=== PATIENT | female | born 1950 | race Caucasian/White ===

== ENCOUNTER 2018-06-27 10:47 | Inpatient (IN) | payer MEDICARE, MEDICAID ==
[~2018-06-27] VITALS: Ht 154.9 cm; Wt 48.6 kg
[2018-06-27] MEDS ORDERED: SODIUM CHLORIDE 0.9% 1,000 ML IV ONE (10:56)
[2018-06-27] MEDS ORDERED: LORazepam 2MG/ML-1ML VIAL IV ONE (11:00)
[2018-06-27 11:27] LABS: Basophils # (auto) 0.1 uL; Basophils % (auto) 0.8 % (0.0-2.0); Eosinophils # (auto) 0 uL; Eosinophils % (auto) 0.3 % (0.0-7.0); Hematocrit 45.3 % (36.0-46.0); Hemoglobin 15.2 g/dL (12.2-16.2); Lymphocytes # (auto) 1.3 uL; Lymphocytes % (auto) 15.7 % (10.0-50.0); Mean Corpuscular Hemoglobin 28.9 pg (28.0-32.0); Mean Corpuscular Hgb Conc. 33.6 g/dL (32.0-36.0); Mean Corpuscular Volume 86.1 fL (80.0-100.0); Monocytes # (auto) 0.5 uL; Monocytes % (auto) 5.7 % (0.0-12.0); Neutrophils # (auto) 6.2 uL; Neutrophils % (auto) 77.5 % (37.0-80.0); Platelet Count (auto) 266 10^3/uL (140-450); Red Blood Cells 5.26 10^6/uL (4.0-5.20); Red Cell Distribution Width 13.7 % (11.8-14.3)
[2018-06-27 11:35] LABS: INR 0.92 (0.9-1.15); Partial Thromboplastin Time 27.7 sec (23.78-33.04); Prothrombin Time 9.9 sec (9.27-12.13)
[2018-06-27 11:49] LABS: Anion Gap 8 (5-15); Blood Urea Nitrogen 11 mg/dL (7-18); Carbon Dioxide 26 mmol/L (21-32); Chloride 99 mmol/L (98-107); GFR African American 125 mL/min; Glucose 122 mg/dL (74-106); Potassium 3.3 mmol/L (3.5-5.1); Sodium 133 mmol/L (136-145)
[2018-06-27 11:50] LABS: Alanine Aminotransferase 21 U/L (13-56); Albumin 3.9 g/dL (3.4-5.0); Alkaline Phosphatase 116 U/L (45-117); Aspartate Aminotransferase 24 U/L (15-37); Bilirubin, Total 0.5 mg/dL (0.2-1.0); Calcium 8.9 mg/dL (8.5-10.1); GFR Non-African American 103 mL/min; Magnesium 2.3 mg/dL (1.6-2.6); Total Protein 8.1 g/dL (6.4-8.2)
[2018-06-27] MEDS ORDERED: SODIUM CHLORIDE 0.9% 1,000 ML IV SCH ×2 (11:52→17:40)
[2018-06-27] MEDS ORDERED: PROMETHAZINE HCL 25 MG/ML 1ML IV PRN (12:00)
[2018-06-27] MEDS ORDERED: ACETAMINOPHEN 500 MG TAB PO PRN (12:00)
[2018-06-27] MEDS ORDERED: DEXTROSE (50%) 50ML SYRG IV PRN (12:00)
[2018-06-27] MEDS ORDERED: NITROGLYCERIN 0.4 MG SL TAB SL PRN (12:00)
[2018-06-27] MEDS ORDERED: MORPHINE SULF INJ 2 MG/ML SYRINGE 1ML IV PRN (12:00)
[2018-06-27] MEDS ORDERED: LACTULOSE 20Gm/30ML SOLN PO PRN (12:00)
[2018-06-27] MEDS ORDERED: NITROGLYCERIN 0.2MG/HR TOPICAL PATCH TD ONE (12:15)
[2018-06-27] MEDS ORDERED: ENOXAPARIN SOD 40 MG/0.4 ML SYRINGE SC ONE (12:15)
[2018-06-27] MEDS ORDERED: ENALAPRIL MALEATE 10 MG TAB PO ONE (12:15)
[2018-06-27] MEDS ORDERED: ASPirin 81 mg TAB PO ONE (12:15)
[2018-06-27] MEDS ORDERED: PANTOPRAZOLE 40 MG TAB PO ONE (12:15)
[2018-06-27 15:03] VITALS: BP 127/87
[2018-06-27] MEDS: InsuLIN REG 1unit/0.01ml Soln (100units/ml) SC SCH ×2 (17:00→22:00)
[2018-06-27] MEDS: ACCU-CHEK COMFORT CURVE STRIP VI SCH ×2 (17:00→22:50)
[2018-06-27 17:44] VITALS: BP 119/73
[2018-06-27] MEDS: SOD CHL 0.9%/ KCL 40MEQ 1,000 ML IV SCH (17:59)
[2018-06-27] MEDS: MORPHINE SULFATE 4 MG/ML SYR/VIAL IV PRN (18:52)
[2018-06-27 21:30] VITALS: BP 105/69
[2018-06-27] MEDS: ATORVASTATIN 20 MG TAB PO SCH (22:45)
[2018-06-27] MEDS: HYDROcodone-ACET 5/325MG TAB PO PRN (22:58)
[2018-06-27] MEDS: TEMAZEPAM 15 MG CAP PO PRN (22:59)
[2018-06-28 05:00] VITALS: BP 111/70
[2018-06-28 05:59] LABS: Cholesterol 129 mg/dL (< 200); HDL Cholesterol 77 mg/dL (40-59); LDL Cholesterol 52 mg/dL (< 100); Triglycerides 84 mg/dL (< 150)
[2018-06-28] MEDS: InsuLIN REG 1unit/0.01ml Soln (100units/ml) SC SCH ×4 (06:25→21:49)
[2018-06-28] MEDS: ACCU-CHEK COMFORT CURVE STRIP VI SCH ×4 (06:25→21:49)
[2018-06-28] MEDS: SOD CHL 0.9%/ KCL 40MEQ 1,000 ML IV SCH ×2 (06:35→13:15)
[2018-06-28] MEDS: HYDROcodone-ACET 5/325MG TAB PO PRN ×2 (06:36→12:37)
[2018-06-28] MEDS: MORPHINE SULFATE 4 MG/ML SYR/VIAL IV PRN ×2 (08:31→14:27)
[2018-06-28 09:00] VITALS: BP 124/81
[2018-06-28] MEDS: LORazepam 0.5 MG TAB PO PRN ×2 (09:13→16:43)
[2018-06-28] MEDS: ENOXAPARIN SOD 40 MG/0.4 ML SYRINGE SC SCH (09:58)
[2018-06-28] MEDS: ASPirin 81 mg TAB PO SCH (09:58)
[2018-06-28] MEDS: NITROGLYCERIN 0.2MG/HR TOPICAL PATCH TD SCH (09:59)
[2018-06-28] MEDS: PANTOPRAZOLE 40 MG TAB PO SCH (10:00)
[2018-06-28] MEDS: ENALAPRIL MALEATE 10 MG TAB PO SCH (10:00)
[2018-06-28 16:57] VITALS: BP 163/58
[2018-06-28 21:30] VITALS: BP 114/80
[2018-06-28] MEDS: ATORVASTATIN 20 MG TAB PO SCH (22:00)
[2018-06-29] MEDS: SOD CHL 0.9%/ KCL 40MEQ 1,000 ML IV SCH ×3 (00:04→22:12)
[2018-06-29 05:00] VITALS: BP 137/93
[2018-06-29] MEDS: ACCU-CHEK COMFORT CURVE STRIP VI SCH ×4 (06:10→22:54)
[2018-06-29] MEDS: InsuLIN REG 1unit/0.01ml Soln (100units/ml) SC SCH ×4 (06:10→22:54)
[2018-06-29 09:30] VITALS: BP 127/61
[2018-06-29] MEDS: ASPirin 81 mg TAB PO SCH (10:02)
[2018-06-29] MEDS: PANTOPRAZOLE 40 MG TAB PO SCH (10:02)
[2018-06-29] MEDS: ENOXAPARIN SOD 40 MG/0.4 ML SYRINGE SC SCH (10:03)
[2018-06-29] MEDS: ENALAPRIL MALEATE 10 MG TAB PO SCH (10:03)
[2018-06-29] MEDS: NITROGLYCERIN 0.2MG/HR TOPICAL PATCH TD SCH (10:04)
[2018-06-29] MEDS: MORPHINE SULFATE 4 MG/ML SYR/VIAL IV PRN ×2 (11:35→18:27)
[2018-06-29] MEDS: LORazepam 0.5 MG TAB PO PRN (11:36)
[2018-06-29 13:15] VITALS: BP 110/70
[2018-06-29] MEDS: HYDROcodone-ACET 5/325MG TAB PO PRN ×2 (15:22→22:12)
[2018-06-29 17:01] VITALS: BP 130/93
[2018-06-29 18:43] LABS: Alcohol, Urine < 3.0 mg/dL (0-5); Amphetamine Screen, Urine NEGATIVE (NEGATIVE); Barbiturate Scree,Urine NEGATIVE (NEGATIVE); Benzodiazephine Screen, Urine NEGATIVE (NEGATIVE); Cannabinoid Screen, Urine NEGATIVE (NEGATIVE); Cocaine Screen, Urine NEGATIVE (NEGATIVE); Opiate Scree,Urine POSITIVE (NEGATIVE); Phencyclidine Screen, Urine NEGATIVE (NEGATIVE)
[2018-06-29 21:34] VITALS: BP 105/74
[2018-06-29] MEDS: ATORVASTATIN 20 MG TAB PO SCH (22:12)
[2018-06-29] MEDS: TEMAZEPAM 15 MG CAP PO PRN (22:55)
[2018-06-30 04:36] VITALS: BP 112/79
[2018-06-30] MEDS: HYDROcodone-ACET 5/325MG TAB PO PRN ×2 (06:43→17:05)
[2018-06-30] MEDS: SOD CHL 0.9%/ KCL 40MEQ 1,000 ML IV SCH ×2 (06:47→15:15)
[2018-06-30] MEDS: InsuLIN REG 1unit/0.01ml Soln (100units/ml) SC SCH ×4 (06:57→22:00)
[2018-06-30] MEDS: ACCU-CHEK COMFORT CURVE STRIP VI SCH ×4 (06:58→22:00)
[2018-06-30 06:59] LABS: Albumin 3.3 g/dL (3.4-5.0); BUN/Creatinine Ratio 24.2; Bilirubin, Total 0.4 mg/dL (0.2-1.0); Calcium 8.2 mg/dL (8.5-10.1); Potassium 4.1 mmol/L (3.5-5.1); Total Protein 6.7 g/dL (6.4-8.2)
[2018-06-30 09:00] VITALS: BP 119/81
[2018-06-30] MEDS ORDERED: VERAPAMIL 2.5MG/ML INJ 2ML VIAL IV ONE (09:18)
[2018-06-30] MEDS ORDERED: SODIUM CHL 0.9% 0 ML ONE (09:18)
[2018-06-30] MEDS ORDERED: MIDAZOLAM HCL 1MG/1ML-2 ML VIAL ONE (09:18)
[2018-06-30] MEDS ORDERED: ANGIOMAX 250 MG VIAL IV ONE (09:18)
[2018-06-30] MEDS ORDERED: fentaNYL CITRATE 100 MCG/2 ML VL ONE (09:18)
[2018-06-30] MEDS ORDERED: HEPARIN SODIUM (PORCINE) 5000 UNITS/ML 1ML VIAL ONE (09:51)
[2018-06-30] MEDS: ENOXAPARIN SOD 40 MG/0.4 ML SYRINGE SC SCH (10:00)
[2018-06-30] MEDS: ENALAPRIL MALEATE 10 MG TAB PO SCH (11:40)
[2018-06-30] MEDS: PANTOPRAZOLE 40 MG TAB PO SCH (11:41)
[2018-06-30] MEDS: NITROGLYCERIN 0.2MG/HR TOPICAL PATCH TD SCH (11:41)
[2018-06-30] MEDS: ASPirin 81 mg TAB PO SCH (11:41)
[2018-06-30 13:00] VITALS: BP 133/74
[2018-06-30 21:28] VITALS: BP 112/70
[2018-06-30] MEDS: ATORVASTATIN 20 MG TAB PO SCH (23:11)
[2018-07-01] MEDS: HYDROcodone-ACET 5/325MG TAB PO PRN ×3 (00:13→18:47)
[2018-07-01] MEDS: LORazepam 0.5 MG TAB PO PRN ×2 (00:26→21:54)
[2018-07-01] MEDS: SOD CHL 0.9%/ KCL 40MEQ 1,000 ML IV SCH ×2 (01:15→11:56)
[2018-07-01 04:44] VITALS: BP 95/59
[2018-07-01] MEDS: ACCU-CHEK COMFORT CURVE STRIP VI SCH ×4 (06:12→21:53)
[2018-07-01] MEDS: InsuLIN REG 1unit/0.01ml Soln (100units/ml) SC SCH ×4 (06:12→21:53)
[2018-07-01 09:00] VITALS: BP 111/70
[2018-07-01] MEDS: MORPHINE SULFATE 4 MG/ML SYR/VIAL IV PRN (09:57)
[2018-07-01] MEDS: ENALAPRIL MALEATE 10 MG TAB PO SCH (09:58)
[2018-07-01] MEDS: NITROGLYCERIN 0.2MG/HR TOPICAL PATCH TD SCH (09:59)
[2018-07-01] MEDS: ASPirin 81 mg TAB PO SCH (10:13)
[2018-07-01] MEDS: PANTOPRAZOLE 40 MG TAB PO SCH (10:13)
[2018-07-01 13:00] VITALS: BP_SYST 111; BP_SYST 126; BP_DIAS 71; BP_DIAS 76
[2018-07-01 17:00] VITALS: BP 145/86
[2018-07-01] MEDS: ATORVASTATIN 20 MG TAB PO SCH (21:53)
[2018-07-01 22:00] VITALS: BP 132/85
[2018-07-02] MEDS: HYDROcodone-ACET 5/325MG TAB PO PRN ×3 (01:29→15:33)
[2018-07-02 05:00] VITALS: BP 154/90
[2018-07-02] MEDS: LORazepam 0.5 MG TAB PO PRN (06:59)
[2018-07-02] MEDS: InsuLIN REG 1unit/0.01ml Soln (100units/ml) SC SCH ×2 (07:00→12:14)
[2018-07-02] MEDS: ACCU-CHEK COMFORT CURVE STRIP VI SCH ×2 (07:15→12:14)
[2018-07-02 08:00] VITALS: BP 154/111
[2018-07-02] MEDS: PANTOPRAZOLE 40 MG TAB PO SCH (09:14)
[2018-07-02] MEDS: ASPirin 81 mg TAB PO SCH (09:14)
[2018-07-02] MEDS: ENALAPRIL MALEATE 10 MG TAB PO SCH (09:15)
[2018-07-02] MEDS: NITROGLYCERIN 0.2MG/HR TOPICAL PATCH TD SCH (09:16)
[2018-07-02 12:00] VITALS: BP 127/75
[2018-07-02 14:52] VITALS: BP 154/111
[2018-07-02 15:02] VITALS: BP 127/75
== END 2018-07-02 18:23 | disposition home health service (06) | DRG 287 ==
LOC: ER 10:47 → EDBD 10:47 → WEST WING 10:48 → TELE-WESTW 13:10
PROVIDERS: ADMIT Internal Medicine; ATTEND Family Medicine
PROC: 4A023N7 Measurement of Cardiac Sampling and Pressure, Left Heart, Percutaneous Approach (ICD-10-PCS; principal; 2018-06-30)
PROC: B2111ZZ Fluoroscopy of Multiple Coronary Arteries using Low Osmolar Contrast (ICD-10-PCS; 2018-06-30)
DX: I25.110 Atherosclerotic heart disease of native coronary artery with unstable angina pectoris (principal); E87.1 Hypo-osmolality and hyponatremia; R45.851 Suicidal ideations; I10 Essential (primary) hypertension; E87.6 Hypokalemia; E11.9 Type 2 diabetes mellitus without complications; E78.00 Pure hypercholesterolemia, unspecified; F15.90 Other stimulant use, unspecified, uncomplicated; F17.210 Nicotine dependence, cigarettes, uncomplicated; I25.2 Old myocardial infarction; Z88.1 Allergy status to other antibiotic agents; Z88.0 Allergy status to penicillin; Z88.2 Allergy status to sulfonamides; Z79.899 Other long term (current) drug therapy; Z71.6 Tobacco abuse counseling; Z79.82 Long term (current) use of aspirin
CPT/HCPCS: 36415; 71045; 80053; 80061; 80307; 82550; 82962; 83036; 83735; 83880; 84443; 84484; 85025; 85379; 85610; 85652; 85730; 86141; 86850; 86900; 86901; 93005; 93306; 93458; 94761; 96372; 96374; 99152; A6257; J1815; J2250

== ENCOUNTER 2018-07-04 16:23 | Emergency (ER) | payer MEDICARE, MEDICAID ==
[~2018-07-04] VITALS: Ht 165.1 cm; Wt 59.0 kg
[2018-07-04] MEDS ORDERED: KETOROLAC TROMETH 60MG/2ML VIAL IM ONE (16:45)
[2018-07-04 18:04] VITALS: BP 143/88
== END 2018-07-04 19:09 | disposition home or self-care (01) ==
LOC: EDBD 16:23 → ER 16:33
DX: M79.1 Myalgia (principal); I10 Essential (primary) hypertension; I25.10 Atherosclerotic heart disease of native coronary artery without angina pectoris; E11.9 Type 2 diabetes mellitus without complications; I25.2 Old myocardial infarction; F17.210 Nicotine dependence, cigarettes, uncomplicated; F12.10 Cannabis abuse, uncomplicated; F15.10 Other stimulant abuse, uncomplicated; Z88.0 Allergy status to penicillin; Z88.2 Allergy status to sulfonamides; Z88.1 Allergy status to other antibiotic agents
CPT/HCPCS: 93005; 96372; 99283; J1885

== ENCOUNTER 2018-07-19 13:24 | Observation (INO) | payer MEDICARE, MEDICAID ==
[~2018-07-19] VITALS: Ht 162.6 cm; Wt 54.4 kg
[2018-07-19 14:20] LABS: Basophils # (auto) 0.1 uL; Basophils % (auto) 0.8 % (0.0-2.0); Eosinophils # (auto) 0.2 uL; Eosinophils % (auto) 2.1 % (0.0-7.0); Hematocrit 49.5 % (36.0-46.0); Hemoglobin 16.8 g/dL (12.2-16.2); Lymphocytes # (auto) 2.6 uL; Lymphocytes % (auto) 27.8 % (10.0-50.0); Mean Corpuscular Hemoglobin 29.3 pg (28.0-32.0); Mean Corpuscular Hgb Conc. 33.9 g/dL (32.0-36.0); Mean Corpuscular Volume 86.3 fL (80.0-100.0); Monocytes # (auto) 0.4 uL; Monocytes % (auto) 4.8 % (0.0-12.0); Neutrophils % (auto) 64.5 % (37.0-80.0); Nucleated Red Blood Cells % 0.1 %; Platelet Count (auto) 243 10^3/uL (140-450); Red Blood Cells 5.73 10^6/uL (4.0-5.20); Red Cell Distribution Width 13.9 % (11.8-14.3); White Blood Cell 9.3 10^3/uL (4.4-10.8)
[2018-07-19 14:34] LABS: Alanine Aminotransferase 19 U/L (13-56); Albumin 3.6 g/dL (3.4-5.0); Anion Gap 10 (5-15); Aspartate Aminotransferase 22 U/L (15-37); BUN/Creatinine Ratio 19.4; Blood Urea Nitrogen 12 mg/dL (7-18); Calcium 8.5 mg/dL (8.5-10.1); Carbon Dioxide 23 mmol/L (21-32); Chloride 106 mmol/L (98-107); GFR African American 123 mL/min; GFR Non-African American 101 mL/min; Glucose 87 mg/dL (74-106); Potassium 3.7 mmol/L (3.5-5.1); Sodium 139 mmol/L (136-145)
[2018-07-19 14:39] LABS: Alkaline Phosphatase 88 U/L (45-117); Bilirubin, Total 0.3 mg/dL (0.2-1.0); Total Protein 7.4 g/dL (6.4-8.2)
[2018-07-19] MEDS ORDERED: HYDROcodone-ACET 5/325MG TAB PO ONE (15:15)
[2018-07-19 15:21] VITALS: BP 158/37
[2018-07-19 17:15] LABS: Urine Bacteria NONE SEEN /hpf (None Seen); Urine Blood Negative /uL (Negative); Urine Specific Gravity 1.012 (1.001-1.035); Urine WBC 2 /hpf (0 - 5)
[2018-07-19] MEDS ORDERED: KETOROLAC TROMETH 60MG/2ML VIAL IM ONE (17:30)
== END 2018-07-19 17:57 | disposition home or self-care (01) | DRG 948 ==
LOC: EDBD 13:24 → ER 13:24 → OVERFLOW 13:25 → ER 17:57
PROVIDERS: ADMIT Family Medicine; ATTEND Family Medicine
DX: R52 Pain, unspecified (principal); N39.0 Urinary tract infection, site not specified; I10 Essential (primary) hypertension; E78.5 Hyperlipidemia, unspecified; F20.9 Schizophrenia, unspecified; F12.10 Cannabis abuse, uncomplicated; F41.9 Anxiety disorder, unspecified; F15.10 Other stimulant abuse, uncomplicated; Z82.49 Family history of ischemic heart disease and other diseases of the circulatory system; Z59.0 Homelessness; F17.210 Nicotine dependence, cigarettes, uncomplicated; Z85.42 Personal history of malignant neoplasm of other parts of uterus; Z88.0 Allergy status to penicillin; Z90.710 Acquired absence of both cervix and uterus
CPT/HCPCS: 36415; 71046; 80053; 81001; 84484; 85025; 93005; 96372; 99285; G0378; J1885

== ENCOUNTER 2018-07-19 21:02 | Emergency (ER) | payer MEDICARE, MEDICAID ==
[~2018-07-19] VITALS: Ht 167.6 cm; Wt 80.3 kg
[2018-07-20 08:05] LABS: Basophils # (auto) 0.1 uL; Basophils % (auto) 0.9 % (0.0-2.0); Eosinophils # (auto) 0.3 uL; Eosinophils % (auto) 2.8 % (0.0-7.0); Hematocrit 45.6 % (36.0-46.0); Hemoglobin 15.3 g/dL (12.2-16.2); Lymphocytes # (auto) 2.5 uL; Lymphocytes % (auto) 27.3 % (10.0-50.0); Mean Corpuscular Hgb Conc. 33.6 g/dL (32.0-36.0); Mean Corpuscular Volume 86.3 fL (80.0-100.0); Monocytes # (auto) 0.6 uL; Monocytes % (auto) 6.8 % (0.0-12.0); Neutrophils # (auto) 5.7 uL; Neutrophils % (auto) 62.2 % (37.0-80.0); Platelet Count (auto) 223 10^3/uL (140-450); Red Blood Cells 5.29 10^6/uL (4.0-5.20); Red Cell Distribution Width 13.8 % (11.8-14.3); White Blood Cell 9.1 10^3/uL (4.4-10.8)
[2018-07-20 08:15] LABS: INR 0.95 (0.9-1.15); Partial Thromboplastin Time 26.7 sec (23.78-33.04); Prothrombin Time 10.2 sec (9.27-12.13)
[2018-07-20 08:19] LABS: Albumin 3.2 g/dL (3.4-5.0); Blood Urea Nitrogen 17 mg/dL (7-18); Calcium 8.5 mg/dL (8.5-10.1); Chloride 108 mmol/L (98-107); Glucose 83 mg/dL (74-106); Potassium 3.4 mmol/L (3.5-5.1); Sodium 143 mmol/L (136-145)
[2018-07-20 08:24] LABS: Acetaminophen < 2.0 ug/mL (10-30); Alanine Aminotransferase 20 U/L (13-56); Alkaline Phosphatase 75 U/L (45-117); Anion Gap 13 (5-15); Aspartate Aminotransferase 11 U/L (15-37); BUN/Creatinine Ratio 29.3; Bilirubin, Total 0.4 mg/dL (0.2-1.0); Carbon Dioxide 22 mmol/L (21-32); GFR African American 133 mL/min; GFR Non-African American 110 mL/min; Salicylate < 1.7 mg/dL (2.8-20.0); Total Protein 6.7 g/dL (6.4-8.2)
[2018-07-20] MEDS ORDERED: ONDANSETRON ODT 4 MG TAB PO ONE (09:00)
[2018-07-20 10:15] LABS: Urine Bacteria NONE SEEN /hpf (None Seen); Urine Blood Negative /uL (Negative); Urine Mucus FEW (None Seen); Urine Specific Gravity 1.026 (1.001-1.035); Urine WBC 1 /hpf (0 - 5)
[2018-07-20 10:28] LABS: Alcohol, Urine < 3.0 mg/dL (0-5); Amphetamine Screen, Urine NEGATIVE (NEGATIVE); Barbiturate Scree,Urine NEGATIVE (NEGATIVE); Benzodiazephine Screen, Urine NEGATIVE (NEGATIVE); Cannabinoid Screen, Urine NEGATIVE (NEGATIVE); Cocaine Screen, Urine NEGATIVE (NEGATIVE); Opiate Scree,Urine NEGATIVE (NEGATIVE); Phencyclidine Screen, Urine NEGATIVE (NEGATIVE)
[2018-07-20 12:30] VITALS: BP 108/63
== END 2018-07-20 14:15 | disposition left against medical advice (07) ==
LOC: EDBD 21:02 → ER 21:07
DX: F23 Brief psychotic disorder (principal); R45.851 Suicidal ideations; F41.9 Anxiety disorder, unspecified; E78.5 Hyperlipidemia, unspecified; I10 Essential (primary) hypertension; F17.210 Nicotine dependence, cigarettes, uncomplicated; Z59.0 Homelessness; Z88.0 Allergy status to penicillin; Z88.1 Allergy status to other antibiotic agents; Z88.2 Allergy status to sulfonamides; Z90.710 Acquired absence of both cervix and uterus
CPT/HCPCS: 36415; 80053; 80307; 80329; 81001; 84484; 85025; 85610; 85730; 93005; 99285; Q0162

== ENCOUNTER 2018-07-22 18:01 | Emergency (ER) | payer MEDICARE, MEDICAID ==
[~2018-07-22] VITALS: Ht 162.6 cm; Wt 68.0 kg
[2018-07-22 18:13] VITALS: BP 100/79
[2018-07-22 19:03] LABS: Basophils # (auto) 0 uL; Basophils % (auto) 0.5 % (0.0-2.0); Eosinophils # (auto) 0.2 uL; Eosinophils % (auto) 2.3 % (0.0-7.0); Hematocrit 45.9 % (36.0-46.0); Hemoglobin 15.6 g/dL (12.2-16.2); Mean Corpuscular Hemoglobin 29.7 pg (28.0-32.0); Mean Corpuscular Hgb Conc. 34.1 g/dL (32.0-36.0); Mean Corpuscular Volume 87.1 fL (80.0-100.0); Monocytes # (auto) 0.4 uL; Monocytes % (auto) 4.9 % (0.0-12.0); Neutrophils # (auto) 5.5 uL; Neutrophils % (auto) 67.3 % (37.0-80.0); Nucleated Red Blood Cells % 0.1 %; Platelet Count (auto) 220 10^3/uL (140-450); Red Blood Cells 5.27 10^6/uL (4.0-5.20); Red Cell Distribution Width 13.9 % (11.8-14.3); White Blood Cell 8.1 10^3/uL (4.4-10.8)
[2018-07-22 19:14] LABS: Alanine Aminotransferase 17 U/L (13-56); Albumin 3.5 g/dL (3.4-5.0); Anion Gap 10 (5-15); Aspartate Aminotransferase 15 U/L (15-37); BUN/Creatinine Ratio 24.7; Blood Urea Nitrogen 20 mg/dL (7-18); Calcium 8.5 mg/dL (8.5-10.1); Carbon Dioxide 24 mmol/L (21-32); Chloride 107 mmol/L (98-107); GFR African American 90 mL/min; GFR Non-African American 75 mL/min; Glucose 166 mg/dL (74-106); Potassium 3.4 mmol/L (3.5-5.1); Sodium 141 mmol/L (136-145)
[2018-07-22 19:19] LABS: Alkaline Phosphatase 81 U/L (45-117); Bilirubin, Total 0.5 mg/dL (0.2-1.0); Total Protein 7.1 g/dL (6.4-8.2)
== END 2018-07-22 23:09 | disposition home or self-care (01) ==
LOC: EDBD 18:01 → ER 18:02
DX: F41.9 Anxiety disorder, unspecified (principal); E11.9 Type 2 diabetes mellitus without complications; E78.5 Hyperlipidemia, unspecified; I10 Essential (primary) hypertension; F20.9 Schizophrenia, unspecified; Z90.710 Acquired absence of both cervix and uterus; Z88.0 Allergy status to penicillin; Z88.1 Allergy status to other antibiotic agents; Z88.2 Allergy status to sulfonamides
CPT/HCPCS: 36415; 80053; 82962; 84484; 85025

== ENCOUNTER → 2018-07-23 | Emergency (ER) | payer MEDICARE, MEDICAID ==
[~2018-07-23] MED LIST: LORazepam 2MG/ML-1ML VIAL ONE
== END | disposition left against medical advice (07) ==
LOC: ER 00:26
DX: F99 Mental disorder, not otherwise specified (principal); Z53.21 Procedure and treatment not carried out due to patient leaving prior to being seen by health care provider

== ENCOUNTER → 2018-07-23 | Emergency (ER) | payer MEDICARE, MEDICAID ==
[~2018-07-23] VITALS: Ht 160 cm; Wt 59.9 kg
[~2018-07-23] MED LIST changes: +ACETAMINOPHEN 325 MG TAB PO ONE; +ALPRAZolam 0.5 MG TAB PO ONE; +IBUPROFEN 600 MG TAB PO ONE; +LORazepam 0.5 MG TAB PO ONE; +LORazepam 2MG/ML-1ML VIAL IV ONE; -LORazepam 2MG/ML-1ML VIAL ONE
[2018-07-25 14:40] VITALS: BP 146/107
== END | disposition short-term general hospital (02) ==
LOC: EDUNIT# 09:14 → EDBD 09:21 → ER 09:21
DX: F20.9 Schizophrenia, unspecified (principal); F17.210 Nicotine dependence, cigarettes, uncomplicated; F12.10 Cannabis abuse, uncomplicated; F15.10 Other stimulant abuse, uncomplicated; I25.10 Atherosclerotic heart disease of native coronary artery without angina pectoris; F41.9 Anxiety disorder, unspecified; E11.9 Type 2 diabetes mellitus without complications; E78.5 Hyperlipidemia, unspecified; I10 Essential (primary) hypertension; I25.2 Old myocardial infarction; Z90.710 Acquired absence of both cervix and uterus; Z59.0 Homelessness; Z95.5 Presence of coronary angioplasty implant and graft
CPT/HCPCS: 82962; 93005; 96374